=== PATIENT | female | born 1950 | race Caucasian/White ===

== ENCOUNTER → 2020-07-20 16:30 | Outpatient (CLI) | payer BC, SELFPAY ==
[2020-07-20] MEDS: COVID-19 VACC #1, MRNA(MOD) 100 MCG/0.5 ML VIAL IM (16:36)
== END ==
PROVIDERS: Visit Provider Internal Medicine
DX: Z23 Encounter for immunization (principal)
CPT/HCPCS: 0011A; 91301

== ENCOUNTER → 2020-08-17 09:47 | Outpatient (CLI) | payer BC, SELFPAY ==
[2020-08-17] MEDS: COVID-19 VACC #2, MRNA(MOD) 100 MCG/0.5 ML VIAL IM (09:54)
== END ==
PROVIDERS: Visit Provider Internal Medicine
DX: Z23 Encounter for immunization (principal)
CPT/HCPCS: 0012A; 91301

== ENCOUNTER → 2020-12-29 10:00 | Outpatient (CLI) | payer BC, SELFPAY ==
[2020-12-29 12:17] LABS: Cancer Antigen 125 < 5.5 U/mL (0-35)
== END ==
PROVIDERS: PCP Family Medicine; Referring Provider Specialist; Visit Provider Specialist
DX: N83.8 Other noninflammatory disorders of ovary, fallopian tube and broad ligament (principal); N95.0 Postmenopausal bleeding
CPT/HCPCS: 36415; 86304

== ENCOUNTER → 2021-01-05 15:45 | Outpatient (CLI) | payer BC, SELFPAY ==
[2021-01-05 16:24] LABS: COVID19 -Nasal RAPID Negative (Negative)
== END ==
PROVIDERS: PCP Family Medicine; Visit Provider Specialist
DX: Z20.822 Contact with and (suspected) exposure to COVID-19 (principal); Z01.812 Encounter for preprocedural laboratory examination
CPT/HCPCS: 87635

== ENCOUNTER 2021-01-06 07:27 | Day surgery (SDC) | payer BC, SELFPAY ==
[2021-01-02 09:26] VITALS: BMI 22.3
--- NOTE | 2021-01-06 | PATH_ITS ---
[facility] Accession Number: [id number] . 01 Material submitted: . body - BILATERAL FALLOPIAN TUBES AND OVARIES . 02 Diagnosis: Bilateral Fallopian Tubes and Ovaries, Bilateral Salping-oophorectomy: Fallopian tubes x2 with rare benign paratubal cysts and serosal adhesions (non-specific); negative for atypia or malignancy. Ovaries x2 with no significant histomorphologic abnormality. V 01/11/2021 1100 Local . 02 Electronically signed: . Remedios Mitchell MD, Pathologist NPI- [id number] . 01 Gross description: . The specimen is received in formalin and labeled bilateral fallopian tubes and ovaries. It consists of two unoriented, fimbriated, continuous fallopian tubes with an attached ovary to each. The first tube measures 5.5 cm in length by 0.5 cm in diameter and is covered in purple-olmos, diffusely congested serosa. Sectioning reveals yellow-olmos, unremarkable mucosa, a pinpoint lumen, and desai that average 0.2 cm in thickness. The attached first ovary measures 2.3 x 1.1 x 0.7 cm and is covered in yellow-olmos, smooth serosa. Sectioning reveals yellow-olmos to purple-olmos, focally hemorrhagic, fibrous cut surfaces with no distinguishing features. . . The second tube measures 4.7 cm in length by 0.4 cm in diameter and is covered in pink-olmos, diffusely congested serosa. Sectioning reveals yellow-olmos, unremarkable mucosa, a pinpoint lumen, and desai that average 0.2 cm in thickness. The attached second ovary measures 2.4 x 1.3 x 0.8 cm and is covered in smooth, yellow-olmos serosa. Sectioning the second ovary reveals yellow-olmos to purple-olmos, focally hemorrhagic, fibrous cut surfaces. [employer] sections are submitted. . Summary of sections: A1 = First fimbria, trisected, three pieces. A2 = First tube, serially sectioned, five pieces. A3 = First ovary, serially sectioned, four pieces. A4 = Second fimbria, bisected, two pieces. A5 = Second tube, serially sectioned, four pieces. A6 = Second ovary, serially sectioned, three pieces. ([id number]) /[facility] 01/07/[address] [place] [address] . 02 Pathologist provided ICD-10: Z00.01 . 02 CPT . 671871, [id number] Performed at: 01 [facility] Cytology [address] [place] [address], [place], [place] [id number] MD Noel Montoya MD Phone: [phone] Performed at: 02 [facility] [place] [id number] [place] [id number] MD Andria Desouza MD Phone: [phone]
[2021-01-06 08:06] VITALS: BP 140/77; PULSE 64; RESP 16; TEMP 36.1; O2SAT 94; BMI 22.3
[2021-01-06] MEDS: LACTATED RINGERS 1,000 ML 42 ML IV (08:12)
--- NOTE | 2021-01-06 08:37 | PM.PREOP ---
Pre-operative Note COVID-19 COVID-19 status: Negative Result date/Date tested (Pos, Neg/Pending): 01/05/21 Interval Note History & Physical reviewed/Exam performed by Physician: Yes Changes to H&P: No
--- NOTE | 2021-01-06 09:10 | SUR.OPER ---
Lithotomy on padded OR bed, head on pillow, arms padded and tucked at sides. Legs secured in padded yellow fins stirrups.
[2021-01-06] MEDS: BUPIVACAINE 0.5% (PF) VIAL 30 ML INJ (09:21)
[2021-01-06 09:35] VITALS: BP 129/63; PULSE 54; RESP 10; TEMP 36.6; O2SAT 98
[2021-01-06 09:40] VITALS: BP 141/67; PULSE 53; RESP 14; O2SAT 98
[2021-01-06 09:45] VITALS: BP 139/68; PULSE 52; RESP 12; O2SAT 96
--- NOTE | 2021-01-06 09:47 | PM.OP.1 ---
Operative Date/Time/Diagnoses Date of procedure: 01/06/21 Time of procedure: 09:47 Pre-op diagnosis: Left Ovarian mass on ultrasound Post-op diagnosis: same Procedure & Clinicians Procedure: Laparoscopic bilateral salpingo oophorectomy Same procedure as scheduled: Yes Indications: Vascular mass of the left ovary seen on ultrasound Surgeon: Citlaly Holt Click Yes if Unassisted: Yes Anesthesia Type: General Operative Notes Findings: Normal appearing tubes, ovaries, uterus. No internal hernias. Normal appearing appendix and bowel surface. Some mild adhesions in the right upper quadrant from her prior cholecystectomy Closure Type: primary Specimen(s): other (Bilateral tubes and ovaries) Estimated Blood Loss (mL): 5 Procedure in detail: Patient was brought to the operating room where she underwent general anesthesia. She was placed in low yellowfin stirrups and prepped and draped in usual sterile fashion. No antibiotics were indicated. Pulsatile stockings were in place and functional. Warming was with Malorie Hugger. The area of the incisions were injected with half percent Marcaine with epinephrine. An incision was made in the umbilicus with a scalpel and the Verres needle placed in the abdomen. Confirmation of correct placement of the needle was performed by withdrawing on the syringe and then allowing fluid to fall freely through the needle. The abdomen was insufflated to 4 L of CO2. A 5 mm trocar was placed under direct visualization. 2 other 5 mm trochars were placed in the right and left lower quadrant under direct visualization after incising the skin. There did not appear to be any damage with placement of the trocars. The right infundibulopelvic ligament was cauterized and cut with the PK generator. Sequential bites were taken down the broad ligament hugging the ovary staying well away from the ureter. The utero-ovarian ligament and the fallopian tube were cauterized and cut allowing the adnexa to be freed. Same procedure was performed on the left adnexa. An 11 mm port was placed suprapubically and the Endo-Catch bag placed down through the port.The ovaries and tubes were placed in the bag and brought up out of the abdomen without spillage. Adequate hemostasis was noted. The CO2 was allowed to escape from the abdomen. The trochars were removed. Skin was closed with 4-0 monocryl. The patient went to recovery room in good condition. Complications: none Post-operative Condition: stable Disposition: same day surgery Plan for aftercare: Treatment and follow-up pending pathology report
[2021-01-06 09:50] VITALS: BP 122/66; PULSE 58; RESP 12; O2SAT 98
[2021-01-06 09:57] VITALS: BP 119/98; PULSE 58; RESP 13; TEMP 36.8; O2SAT 98
== END 2021-01-06 10:14 | disposition home or self-care (01) ==
PROVIDERS: PCP Family Medicine; Referring Provider Specialist; Visit Provider Specialist
PROC: 0UT24ZZ Resection of Bilateral Ovaries, Percutaneous Endoscopic Approach (ICD-10-PCS; CPT 58661; principal; 2021-01-06 08:45)
DX: N83.8 Other noninflammatory disorders of ovary, fallopian tube and broad ligament (principal); E03.9 Hypothyroidism, unspecified
CPT/HCPCS: 58661; J1100; J2405; J2704; J3010